=== PATIENT | female | born 1980 ===

== ENCOUNTER 2024-11-18 09:46 | Outpatient (REF) | payer SELFPAY ==
[2024-11-18 10:01] LABS: Abs Immature Grans 0.02 10^3/uL (0.0-0.06); Absolute Basophil Count 0.07 10^3/uL (0.0-0.2); Absolute Eosinophil Count 0.22 10^3/uL (0.0-0.7); Absolute Lymphocyte Count 1.64 10^3/uL (1.2-3.4); Absolute Neutrophil Count 4.34 10^3/uL (1.2-6.7); Eosinophils % 3.3 %; HGB 8.1 g/dL (11.2-15.7); Immature Grans % 0.3 %; Lymphocytes % 24.5 %; MCH 18.8 pg (27.0-33.0); MCV 69 fL (80-95); MPV 9.1 fL (8.0-11.0); Neutrophils % 64.9 %; Platelet Count 467 10^3/uL (130-400); RBC 4.32 10^6/uL (3.93-5.22); RDW 18.2 % (11.7-14.6); WBC 6.69 10^3/uL (4.4-10.8)
[2024-11-18 10:28] LABS: Anisocytosis 1+; Diff Comment RBC Morph Reviewed; Hypochromasia 1+; Microcytosis 2+; Polychromasia Present
[2024-11-19 11:10] LABS: IgE 162 IU/mL (<158)
== END 2024-11-18 09:47 | disposition home or self-care (01) ==
LOC: LBN 09:46
PROVIDERS: PCP Registered Nurse; Visit Provider Physician Assistant Surgical
DX: J45.909 Unspecified asthma, uncomplicated (principal); J32.4 Chronic pansinusitis
CPT/HCPCS: 82785; 85025